=== PATIENT | male | born 1980 | race Caucasian/White ===

== ENCOUNTER 2023-04-24 10:42 | Outpatient (CLI) | payer OTHER ==
--- NOTE | 2023-04-24 11:23 | Sleep Patient Instructions ---
Sleep Center Visit Summary - Patient Visit Information Reason for Visit: Initial consult for evaluation of sleep disordered breathing and other sleep issues. - Patient Instructions Instructions Attached: Sleep Study Home Monitor Additional Instructions: You will be completing a sleep study, either an in-lab polysomnography (PSG) or home sleep study (HST). You will follow-up in the sleep care office after the sleep study is completed to hear the results and talk about therapy, if needed. You will be called by our office staff to schedule this appointment, but you may contact us with any questions. - Clinic Information Contact: [facility] [address] [place] [address] [email or web address] T: [phone]
[2023-04-24 11:27] VITALS: BP 143/91; O2SAT 96
--- NOTE | 2023-04-24 11:27 | SLEEP CARE CONSULTATION ---
Information from patient questionnaire entered by Preston Campbell. I have reviewed and concur with the information entered by Preston Campbell. This document represents the service I personally performed and the decisions made by me, Alda August ARNP. History of Present Illness Service Date and Time: 04/24/2023 1042 Reason for Visit: New patient Chief Complaint: reports: Snoring, Observed pauses in breathing Date of Onset: 2YRS Usual bedtime: 2130 IF ON DAYS 0130 IF ON NIGHTS Time it takes to fall asleep: 15MIN Snores at night: Yes Observed to quit breathing while asleep: Yes Sleeps alone due to snoring: No Number of times waking at night: 1 Reasons for waking at night: reports: Snoring, Bathroom. denies: Choking, Gasping for air Toss, Turn, or Twitch while sleeping: Yes Recalls having dreams: No Usually gets out of bed at: 0500 IF ON DAYS 0930 IF ON NIGHTS Feels refreshed in the morning: Yes (mostly) Morning headache: No Sleepy or fatigued during the day: No Ever fallen asleep while driving: No Takes day naps: Yes (rarely takes naps; maybe once a week) Dreams during day naps: No Prior sleep studies: No Additional HPI information: I had the pleasure of seeing FREDERICK AGUIRRE today regarding the possibility of him having a sleep disorder. His current complaints are snoring and observed pauses in breathing. He says he is here because his snoring is keeping his awake. She has told him he stops breathing and will gasp in his sleep. He currently on a day schedule but was recently on a night schedule with his work, [employer]. He states he normally wakes up feeling refreshed in the mornings and has good energy throughout the day. He rarely takes a nap except on weekends. He denies waking up choking or gasping for air. 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 Patient is and lives in [place]. Have you smoked in the past 12 months: No Alcohol use: Yes Alcohol amount and frequency: 4 DRINKS 4-5 TIMES A MONTH Caffeine use: Yes Caffeine amount and frequency: 1 CUP COFFEE DAILY Family History Family history of sleep disordered breathing: Yes Family Hx Sleep Apnea: Mother: Snoring, Father: Snoring, Sibling: Snoring Allergies and Home Medications Known drug allergies: No Drug allergies reviewed: Yes Home medication list reviewed: Yes Allergy and home medication list: Allergies No Known Drug Allergies Allergy (Verified 04/22/23 08:47) Home Medications Medication Instructions Recorded Confirmed Last Taken Type No Known Home Medications 04/24/23 04/24/23 Unknown History Review of Systems Weight gain over past 5 years: 15 Cardiovascular: denies: high blood pressure Gastrointestinal: denies: heartburn Neurological: denies: headaches Psychiatric: denies: anxiety, depression Ear/Nose/Throat: reports: wisdom teeth removed. denies: tonsillectomy Physical Exam Vital signs obtained and entered by: PRESTON Cedillo MA Blood Pressure: 143/91 (LEFT ARM) Cuff size: regular Heart Rate: 92 O2 Saturation: 96 Height: 5 ft 9 in Weight: 244 lb 6.4 oz Body Mass Index: 36.1 BMI Classification: Obese Neck circumference: 16.75 Mouth and throat: narrow oropharynx Soft palate: long Hard palate: normal Uvula: long Uvula visualization: 25% Mallampati Class III Tongue: normal in size Tonsils: 1+ Neck: normal w/o lymphadenopathy or thyromegaly Heart: regular rate and rhythm Lungs: clear bilaterally Impression and Plan 1. Suspected Obstructive Sleep Apnea-Hypopnea Syndrome, as suggested by a history of loud and irregular snoring, observed cessation of breath while asleep, and excessive daytime sleepiness. Narrow oropharynx and obesity are common predisposing factors for obstructive sleep apnea-hypopnea syndrome. I recommend proceeding to polysomnography to confirm the diagnosis and to assess severity. If the patient has significant sleep disordered breathing, a manual CPAP titration study will also be performed to find the optimal treatment pressure. I informed the patient of what the sleep studies involve and after some discussion, obtained agreement to proceed. The pathophysiology of obstructive sleep apnea-hypopnea syndrome was discussed with the patient and health risks of cardiovascular and cerebrovascular disease if not treated. 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 Patient agreed to plan. * Schedule polysomnography. * Avoid long distance driving or driving when feeling sleepy. * Avoid alcohol, sedative and muscle relaxant around bedtime. * Attempt to lose weight. * Review instructions provided by trained office staff on how to prepare for the sleep study. * Return for follow-up after sleep study completed. Counseling Topics: Weight loss health impact Follow up with Sleep Care in: other (after sleep study) Plan: PSG/HST Visit Type: In Office Time Spent with Patient (minutes): 24 Provider Statement: I spent 100% of the Face to Face Visit with the patient with greater than 50% spent counseling the patient and coordination of care.
== END 2023-04-24 10:43 | disposition home or self-care (01) ==
LOC: SC 10:42
PROVIDERS: ATTEND Nurse Practitioner Family
DX: R06.83 Snoring (principal); R06.81 Apnea, not elsewhere classified; G47.10 Hypersomnia, unspecified; E66.9 Obesity, unspecified; Z68.36 Body mass index [BMI] 36.0-36.9, adult
CPT/HCPCS: 99202; 99212

== ENCOUNTER 2023-05-08 08:38 | Outpatient (CLI) | payer OTHER | END 2023-05-08 08:39 | disposition home or self-care (01) | LOC: SC 08:38 | PROVIDERS: ATTEND Nurse Practitioner Family | DX: G47.33 Obstructive sleep apnea (adult) (pediatric) (principal); R09.02 Hypoxemia | CPT/HCPCS: 95806 ==

== ENCOUNTER 2023-05-23 10:02 | Outpatient (CLI) | payer OTHER ==
--- NOTE | 2023-05-23 09:53 | SLEEP CARE CONSULTATION ---
Information from patient questionnaire entered by Claribel Campbell. I have reviewed and concur with the information entered by Claribel Campbell. This document represents the service I personally performed and the decisions made by me, Alda August ARNP. History of Present Illness Service Date and Time: 05/23/2023 0940 Initial [place] Sleepiness Scale score: 15 (03/20/23) Current [place] Sleepiness Scale score: 6 Additional HPI information: FREDERICK AGUIRRE returns via video appointment for follow up and results of the recently performed home sleep study. The sleep study showed severe obstructive sleep apnea with an average AHI of 49 and cornell oxygen saturation of 61%. I explained the pathophysiology behind obstructive sleep apnea. We then spent quite a bit of time discussing different treatment options. For mild obstructive sleep apnea, surgery and oral appliance are alternatives to nasal CPAP therapy but in moderate or severe cases, nasal CPAP is the most effective and reliable treatment. I reviewed the impact of weight changes on sleep apnea and strongly recommended losing weight. After some discussion, the patient will be started nasal CPAP therapy. Nasal autoCPAP set at 5-20 cmH20 will be ordered with rationale explained. A manual titration study will be ordered if unable to find optimal pressure with office adjustments. I explained how CPAP machine works and what to expect when using the machine. Using CPAP every night in order to get used to it was emphasized. Patient advised to put CPAP mask on before getting into bed so as not to fall asleep without CPAP. To assist acclimation to CPAP use, it could also be used for a short time during day while reading or watching TV. The patient was instructed to call the CPAP supplier to discuss any mechanical problem that may occur. If the mask given is uncomfortable or is difficult to keep on through the night even with adjustment, contact the CPAP supplier as many will replace with another mask style if notified before 30 days. If snoring or perceives is not getting enough air or too much air from the machine, notify this office. Patient counseled not drink alcohol less than 4 hours before bedtime as it can increase snoring and apnea. Patient was cautioned about risks of drowsy driving until sleepiness symptoms resolve. Patient denies drowsy driving. Sleep Study - Results Type of Sleep Study: Home sleep study (COMPLETED 05/08/23) Prior sleep studies: No Polysomnography/Home Sleep Study results: Physician Impression: The quality of the study is good. The length of the study is adequate (> 240 minutes). Please also see the tabulated and graphic data. 1. Obstructive Sleep Apnea-Hypopnea (ICD-10 G47.33), severe, with an AHI of 49.0 /hr and cornell SaO2 of 61%. During the study, the patient had 271 apneas (271 obstructive, 0 central, 0 mixed) and 115 hypopneas. The longest episode lasted 76.0 seconds. The respiratory events occurred more frequently during supine sleep (supine AHI was 58.0 and non-supine, 19.07). 2. Hypoxemia (ICD-10 R09.02), moderate, with the lowest oxygen saturation of 61 % and 64.7 minutes with SaO2 under 90%. Baseline oxygen saturation was normal (Average oxygen saturation was 92%). Allergies and Home Medications Known drug allergies: No Drug allergies reviewed: Yes Home medication list reviewed: Yes (no changes) Allergy and home medication list: Allergies No Known Drug Allergies Allergy (Verified 04/22/23 08:47) Review of Systems Review of systems same as previous: Yes (no changes) Physical Exam Vital signs obtained and entered by: ALDA DRUMMOND Height: 5 ft 9 in Weight: 210 lb (per pt) Body Mass Index: 31.0 BMI Classification: Obese Impression and Plan 1. Obstructive Sleep Apnea-Hypopnea Syndrome, severe, with lowest oxygen saturation of 61%. Obviously this is the cause of the patients symptoms of unrefreshed sleep, and excessive daytime sleepiness. As mentioned above, the patient will be started on nasal autoCPAP therapy with pressure set at 5-20 cmH2 O. A manual titration study will be completed if unable to find optimal treatment pressure with office adjustments. Compliance guidelines also reviewed. Because the apnea is more severe supine, I instructed to avoid sleeping supine using pillow positioning until able to start CPAP use. 2. Hypoxemia, moderate, with a cornell oxygen saturation of 61% and 64.7 minutes spent under 90%. The baseline oxygen saturation was normal with an average oxygen saturation of 92%. 3. Obesity, unspecified. Currently patients BMI is 31. Obesity increases the risk of apnea, CPAP pressure requirements and overall health risks especially cardiovascular and diabetes. Thus patient is advised to lose weight. * Nasal auto CPAP therapy, pressure at 5-20 cm H2O. * Attempt to lose weight. * Avoid alcohol consumption near bedtime. * Avoid supine sleep until using CPAP. * Return one month after CPAP obtained. I will assess response to therapy and compliance at that time. Counseling Topics: Sleeping position, Weight loss health impact Prescriptions: Auto CPAP Follow up with Sleep Care in: other (for compliance visit) Visit Type: Telehealth Video Video Type: Doximity Patient Location: Home (in [facility]) Location of Provider: Office Patient agrees and consents to this telehealth visit type: Yes Patient agrees to have their insurance billed: Yes Time Spent with Patient (minutes): 20 Provider Statement: I spent 100% of the Telehealth Video Call with the patient with greater than 50% spent counseling the patient and coordination of care.
== END 2023-05-23 10:03 | disposition home or self-care (01) ==
LOC: SC 10:02
PROVIDERS: ATTEND Nurse Practitioner Family
DX: G47.33 Obstructive sleep apnea (adult) (pediatric) (principal); R09.02 Hypoxemia; E66.9 Obesity, unspecified; Z68.31 Body mass index [BMI] 31.0-31.9, adult